=== PATIENT | male | born 1985 | race Caucasian/White ===

== ENCOUNTER → 2016-06-25 | Outpatient (CLI) | payer OTHER ==
--- NOTE | 2016-06-25 16:19 | KCIC ---
PROCEDURE Three-view left 1st finger HISTORY Pain after injury. COMPARISON None FINDINGS No evidence of acute fracture or dislocation. Joints and soft tissues appear unremarkable. IMPRESSION No acute fracture or dislocation. Electronically signed by: Andres Wynn MD (June 25, 2016 16:18:16)
== END | disposition home or self-care (01) ==
LOC: KCIC 15:50
PROVIDERS: ATTEND Family Medicine
DX: M79.645 Pain in left finger(s) (principal)
CPT/HCPCS: 73140